=== PATIENT | female | born 1950 | race Caucasian/White ===

== ENCOUNTER → 2018-06-03 | Outpatient (CLI) | payer MEDICARE, BC ==
[2018-06-03 14:54] VITALS: BP 190/91; PULSE 69; TEMP 97.7; BMI 32.5
--- NOTE | 2018-06-10 14:57 | P.HPBAR ---
Bariatric H&P - History & Physicial H&P Date: 06/03/18 History & Physicial: Visit/CC: bariatric follow up Patient initial contact: Initial weight: Initial weight in pounds: Height: 5 ft 4.5 in Initial BMI: Last weight: Current weight: 87.543 kg Current weight in pounds: 193.00 Current BMI: 32.5 [place] body weight (based on NIH guidelines): 55.565 kg Excess body weight loss: The patient is a 68 year-old F who presents for Bariatric Assessment. Patient presents today for sleeve gastrectomy follow-up. Her gastric sleeve was performed 2013. She's not been seen for several years. She has some mild GERD. Past Medical History Past Medical History: GERD/Reflux, Hyperlipidemia, Hypertension, Myocardial Infarction ([place]) Additional Past Medical History / Comment(s): Acid reflx (controlled with apple cider vinegar), seasonal allergies Last Myocardial Infarction Date:: September 2006 History of Any Multi-Drug Resistant Organisms: None Reported Past Surgical History: Bariatric Surgery, Heart Catheterization With Stent, Hysterectomy Additional Past Surgical History / Comment(s): gastric sleeve 2013, total hysterectomy 2005, Past Anesthesia/Blood Transfusion Reactions: No Reported Reaction Additional Past Anesthesia/Blood Transfusion Reaction / Comm: No blood transfusion to date Date of Last Stent Placement:: september 2006 Smoking Status: Never smoker Surgical - Exam Vital Signs Temp Pulse BP 97.7 F 69 190/91 06/03/18 14:52 06/03/18 14:52 06/03/18 14:52 - General well developed, no distress - Eyes PERRL - ENT normal pinna - Neck no masses - Respiratory normal expansion - Cardiovascular Rhythm: regular - Abdomen Abdomen: soft, non tender Bariatric Assessment & Plan Plan: Status post sleeve gastrectomy. Patient's GERD symptoms are minimal will be observed. She'll follow-up in 3 months. Bariatric Checklist Checklist: Plan: Checklist: EGD: 1. Hiatal hernia: 2. H. Pylori: HgbA1c: Vitamin D: Smoking: Never smoker Primary care physician referral: dr angeles Psychiatry clearance: Cardiology clearance: Sleep study: Diet journal: VTE risk score: VTE risk level: Rehab needs at discharge:
== END | disposition home or self-care (01) ==
LOC: BARWHC3 14:03
PROVIDERS: ATTEND Surgery
DX: Z09 Encounter for follow-up examination after completed treatment for conditions other than malignant neoplasm (principal); K21.9 Gastro-esophageal reflux disease without esophagitis; Z98.84 Bariatric surgery status
CPT/HCPCS: 99201